=== PATIENT | female | born 1940 | race Caucasian/White ===

== ENCOUNTER → 2023-06-16 14:39 | Outpatient (REF) | payer MEDICARE, SELFPAY ==
[2023-06-16 16:19] LABS: % Basophils 0.7 % (0-2); % Immature Granulocytes 0.2 % (0-0.5); % Lymphocytes 41.2 % (20.5-51.1); % Monocytes 12.6 % (1.7-9.3); % Neutrophils 41.3 % (42.2-75.2); Absolute Basophils 0.1 10^3/uL (0-0.2); Absolute Eosinophils 0.3 10^3/uL (0-0.7); Absolute Lymphocytes 3.4 10^3/uL (1.2-3.4); Absolute Neutrophils 3.4 10^3/uL (1.4-6.5); Hematocrit 34.8 % (37.0-47.0); Mean Corp Hgb Conc. 34.5 g/dL (33.0-37.0); Mean Corpuscular Hgb 31.5 pg (27.0-31.0); Mean Corpuscular Volume 91.3 fL (81.0-99.0); Mean Platelet Volume 12.1 fL (7.4-10.4); Nucleated Red Blood Cells % 0 %; Platelet Count 229 10^3/uL (130-400); Red Blood Cell Count 3.81 10^6/uL (4.20-5.40); Red Cell Dist. Width 13.2 % (11.5-14.5); White Blood Cell Count 8.2 10^3/uL (4.8-10.8)
== END ==
LOC: REG 14:39
PROVIDERS: ATTENDING PHYSICIAN Internal Medicine Hematology & Oncology; FAMILY PHYSICIAN Family Medicine
DX: I26.99 Other pulmonary embolism without acute cor pulmonale (principal); I82.401 Acute embolism and thrombosis of unspecified deep veins of right lower extremity
CPT/HCPCS: 36415; 85025

== ENCOUNTER 2023-06-18 18:25 | Emergency (ER) | payer MEDICARE, SELFPAY ==
[2023-06-18] VITALS (8 sets, daily range): BP systolic 106–127; BP diastolic 62–85; PULSE 90–106; BMI 31.1
--- NOTE | 2023-06-18 19:14 | ED.GENMED ---
History of Present Illness
<TOBY Solorzano - Last Filed: 06/18/23 21:10>
General
Chief Complaint: Fainting/Passed Out
Source: patient
Exam Limitations: none
Time Seen by Provider: 06/18/23 19:02
Nursing documentation reviewed up to this point in time: agreed with
Travel History
Have you had any contact with someone who has COVID-19?: No
Do you have any symptoms of coronavirus? Fever > 100 degrees, chills, cough, shortness of breath, sore throat, loss of taste or smell, muscle aches, or headache?: No
History of Present Illness
History of Present Illness:
83 y/o F presents to ED after an episode of near syncope at 1700. Patient states she was in the kitchen when she suddenly felt hot and sweaty and fell to the floor. She states she did not lose consciousness. She also reports one episode of loose
bowels last night and chills last night. Patient reports she felt 'really cold' last night. She had associated generalized abdominal pain last night. She states the abdominal pain and diarrhea has since resolved. She also is not having chills.
Patient daughter reports patient does not drink adequate amount of fluids throughout the day. Patient agrees she only drinks little bit of water at night. She denies headache, numbness/tingling, weakness, fever, cough, congestion, sore throat,
nausea, vomiting or chest pain/palpitations.
If applicable-neuro sx onset
Onset of symptoms known: Yes
Date of onset of symptoms: 06/18/23
Time of onset of symptoms: 17:00
Past History
<TOBY Solorzano - Last Filed: 06/18/23 21:10>
Past History
ED Past Medical History: HTN and Other (Osteoporosis)
ED Past Surgical History: Cholecystectomy
Social History
Tobacco: Non-smoker
Alcohol: None
Drug: None
Personal:
Living: with family
Review of Systems
<Jessicamary Hidalgo WAYNE - Last Filed: 06/18/23 21:10>
Review of Systems
Allergies reviewed?: Yes
All Other Systems: ROS reviewed and negative except as documented in HPI and ROS
Constitutional: Reports chills
EENT: Reports no symptoms
Respiratory: Reports no symptoms
Cardiac: Reports diaphoresis
ABD/GI: Reports abdominal pain and diarrhea
: Reports no symptoms
Musculoskeletal: Reports no symptoms
Skin: Reports no symptoms
Neurological: Reports dizzy
Endocrine: Reports no symptoms
Hematologic/Lymphatic: Reports no symptoms
Psychiatric: Reports no symptoms
Phy Exam
<Jessicamary Hidalgo ME - Last Filed: 06/18/23 21:10>
General Physical Exam
General Presentation: well appearing and no apparent distress
General age: appears stated age
General Skin: warm and dry
General Habitus: normal
General Mental: alert
General Hydration: appears well hydrated
ENT Exam
ENT Exam: EOMI, TM's normal, pharynx normal and neck supple
Eye Exam
Eye Exam: PERRL, EOMI and conjunctiva normal
Cardiovascular Exam
Cardiovascular Exam: normal peripheral pulses
Pulmonary Exam
Pulmonary Exam: lungs clear, no respiratory distress, no rales, no crackles and no rhonchi
Gastrointestinal Exam
Gastrointestinal Exam: normal bowel sounds, non tender, soft and non distended
Neurological Exam
Neurological Exam: alert and oriented x3
Musculoskeletal Exam
Musculoskeletal Exam: full ROM
Skin Exam
Skin Exam: normal color, warm/dry and no rash
Psychiatric Exam
Psychiatric Exam: normal mood/affect
Course
<Jessicamary Hidalgo ME - Last Filed: 06/18/23 21:10>
Orders/Labs/Results
Orders:
Orders
06/18/23 18:37
EKG [Electrocardiogram (*1)] Urgent
Reason for Study: Syncope
EKG- Treatment ONCE
06/18/23 19:20
CBC/With Diff [Complete Blood Count/With Diff] Urgent
CMP [Comprehensive Metabolic Panel] Urgent
06/18/23 19:22
Orthostatic VS- Treatment ONCE
06/18/23 19:47
COVID-19 Antigen Urgent
Source: Nasal Swab
Influenza A+B Rapid Molecular Urgent
KATIE Source: Nasal Swab
Specimen Description:
06/18/23 20:15
0.9% Sodium Chloride 1000 ml [Nss] 1,000 ml IV BOLUS
Potassium Chloride 10% Elixir [KCl Elixir] 40 meq PO NOW STA
06/18/23 20:24
0.9% Sodium Chloride 500 ml [Nss] 500 ml IV BOLUS
Abnormal Lab Results
06/18/23
19:20
WBC 11.4 H 10^3/uL
(4.8-10.8)
RBC 3.82 L 10^6/uL
(4.20-5.40)
Hgb 11.9 L g/dL
(12.0-16.0)
Hct 33.2 L %
(37.0-47.0)
MCH 31.2 H pg
(27.0-31.0)
MPV 11.0 H fL
(7.4-10.4)
Absolute Neuts (auto) 7.8 H 10^3/uL
(1.4-6.5)
Absolute Monos (auto) 1.4 H 10^3/uL
(0.1-0.6)
Lymphocytes % 18.9 L %
(20.5-51.1)
Monocytes % 11.9 H %
(1.7-9.3)
Sodium 130 L mmol/L
(135-145)
Potassium 3.0 L mmol/L
(3.5-5.1)
Chloride 93 L mmol/L
(98-107)
BUN 30 H mg/dl
(7-17)
Creatinine 1.1 H mg/dL
(0.6-1.0)
Glucose 153 H mg/dl
(70-99)
06/18/23 19:20
06/18/23 19:20
Vital Signs
Initial and Last Documented VS:
Initial Vital Signs
Temp Pulse Resp BP Pulse Ox
98.4 F 92 18 127/65 97
06/18/23 18:33 06/18/23 18:33 06/18/23 18:33 06/18/23 18:33 06/18/23 18:33
Last Documented Vital Signs
Temp Pulse Resp BP Pulse Ox
98.4 F 102 18 109/69 97
06/18/23 18:33 06/18/23 20:00 06/18/23 20:00 06/18/23 20:00 06/18/23 18:33
Lionlt;Salomon Clayton, DO - Last Filed: 06/18/23 21:13>
Orders/Labs/Results
Orders:
Orders
06/18/23 18:37
EKG [Electrocardiogram (*1)] Urgent
Reason for Study: Syncope
EKG- Treatment ONCE
06/18/23 19:20
CBC/With Diff [Complete Blood Count/With Diff] Urgent
CMP [Comprehensive Metabolic Panel] Urgent
06/18/23 19:22
Orthostatic VS- Treatment ONCE
06/18/23 19:47
COVID-19 Antigen Urgent
Source: Nasal Swab
Influenza A+B Rapid Molecular Urgent
KATIE Source: Nasal Swab
Specimen Description:
06/18/23 20:15
0.9% Sodium Chloride 1000 ml [Nss] 1,000 ml IV BOLUS
Potassium Chloride 10% Elixir [KCl Elixir] 40 meq PO NOW STA
06/18/23 20:24
0.9% Sodium Chloride 500 ml [Nss] 500 ml IV BOLUS
Abnormal Lab Results
06/18/23
19:20
WBC 11.4 H 10^3/uL
(4.8-10.8)
RBC 3.82 L 10^6/uL
(4.20-5.40)
Hgb 11.9 L g/dL
(12.0-16.0)
Hct 33.2 L %
(37.0-47.0)
MCH 31.2 H pg
(27.0-31.0)
MPV 11.0 H fL
(7.4-10.4)
Absolute Neuts (auto) 7.8 H 10^3/uL
(1.4-6.5)
Absolute Monos (auto) 1.4 H 10^3/uL
(0.1-0.6)
Lymphocytes % 18.9 L %
(20.5-51.1)
Monocytes % 11.9 H %
(1.7-9.3)
Sodium 130 L mmol/L
(135-145)
Potassium 3.0 L mmol/L
(3.5-5.1)
Chloride 93 L mmol/L
(98-107)
BUN 30 H mg/dl
(7-17)
Creatinine 1.1 H mg/dL
(0.6-1.0)
Glucose 153 H mg/dl
(70-99)
06/18/23 19:20
06/18/23 19:20
Vital Signs
Initial and Last Documented VS:
Initial Vital Signs
Temp Pulse Resp BP Pulse Ox
98.4 F 92 18 127/65 97
06/18/23 18:33 06/18/23 18:33 06/18/23 18:33 06/18/23 18:33 06/18/23 18:33
Last Documented Vital Signs
Temp Pulse Resp BP Pulse Ox
98.4 F 102 18 109/69 97
06/18/23 18:33 06/18/23 20:00 06/18/23 20:00 06/18/23 20:00 06/18/23 18:33
<TOBY Solorzano - Last Filed: 06/18/23 21:10>
MDM/Problems Addressed
Differential Diagnosis Includes:
Arrhythmia
Dehydration
Anemia
Flu/COVID
Viral gastro
<TOBY Solorzano - Last Filed: 06/18/23 21:10>
*Critical Care Note
Total Time (30-74mins, 75-104mins- exclusive of procedures): Not Applicable
<TOBY Solorzano - Last Filed: 06/18/23 21:10>
Update Note
Update Note:
2109: Patient is comfortable in bed. She reports feeling well and 'ready to go home'. Vitals stable.
<Salomon Clayton DO - Last Filed: 06/18/23 21:13>
Update Note
Update Note:
06/18/20232108 PM: Patient feels well enough to go home. She will remain hydrated
ED Attending Note
<TOBY Solorzano - Last Filed: 06/18/23 21:10>
-
Portions of this chart may have been created with voice recognition software.� Occasional wrong word or��sound alike� substitutions may have occurred due to the inherent limitations of voice recognition software.
<Salomon Clayton DO - Last Filed: 06/18/23 21:13>
ED Attending Note
Patient seen and examined by attending physician: Yes
I performed the substantive portion of visit, reviewed & personally made and approve the management plan that is documented in note by myself or SAVANNAH.: Yes
ED Attending Note:
Pleasant 83-year-old female that presents with a near syncopal event that occurred around 5 PM tonight. Patient was in the kitchen and felt flushed and had a near syncopal event. She fell to the floor. She did not lose consciousness. She states
that she did not hit her head. She states that yesterday she had generalized abdominal pain and diarrhea. Patient and family report that she is not drinking enough fluids. She is on Lasix for the bilateral leg edema as followed by her primary
care physician. Patient has no complaints at this time and wishes to be discharged home. Patient was seen in conjunction with the PA student. I have reviewed and agree with the history and treatment plan presented. On my independent physical
exam, patient is awake, alert, and oriented x3, no acute distress. Heart is regular rhythm rate of 72. Lungs are clear to auscultation bilaterally. Moves all 4 extremities.
EKG shows sinus rhythm rate of 81 with PACs present. No evidence of acute ischemia. When compared with previous EKG dated August 11, 2022, similar morphology noted. Rate has improved
Plan is judicious fluid repletion with potassium supplementation. Patient wishes to be discharged. Once she can ambulate she will be discharged.
Discharge Plan
Departure
Patient Disposition: Home (Routine Discharge)
Date of Disposition: 06/18/23
Time of Disposition: 21:10
Patient with high blood pressure during this ER visit?: No
Condition: Good
Discharge Problem:
Near syncope, Acute hypokalemia, Dehydration
Instructions: Hypokalemia (DC), Syncope (Fainting) (DC), Dehydration, Adult ED
Prescriptions:
No Action
hydrochlorothiazide 25 MG tablet
25 mg PO DAILY
Centrum Women 18-400 mg-mcg Tablet
1 tab PO DAILY
losartan 50 mg tablet
50 mg PO DAILY
famotidine 20 mg Tablet
20 mg PO DAILY
diltiazem HCl 180 mg Capsule,Extended Release 24hr
180 mg PO DAILY Qty: 30 0RF
Eliquis 5 mg tablet
5 mg PO BID Qty: 90 0RF
Rx Instructions:
take 10 mg BID for 5 days, than 5 mg BID
Referrals:
Aftab Hawk MD [Family Provider] -
Activity Restrictions/Additional Instructions:
It was a pleasure meeting you and taking part in your care. We hope for your continued healing and wellness.
Please read discharge instructions in their entirety. However, they are for general education and may not describe your exact diagnosis at discharge. Information on your ER visit and medical conditions were discussed with you along with appropriate
follow up information...
If indicated, please take your medications as instructed and indicated on discharge paperwork.
Please schedule a follow up appointment as directed. Call to schedule an appointment
Please return to the emergency department with ANY change in, persisting, or worsening of symptoms. If any of your symptoms do not improve, or persist, or become more severe within 6-12 hours, please return to the emergency department for further
care.
Please return to the emergency department if you develop a headache, neck pain/stiffness, fever greater than 100.4F, chest pain, shortness of breath, persistent nausea, vomiting, slurred speech, difficulty walking, numbness/tingling, weakness, signs
of infection or any other symptoms that are worrisome to you.
If you have any questions or concerns please do not hesitate to call the Hospital at or E-mail me directly at [email or web address]
Interventions
Interventions:
*General Assessment Last Done: 06/18/23 18:33
*ED COVID-19 Vaccine History Last Done: 06/18/23 18:33
ED- Cardiac Assessment Last Done: 06/18/23 19:20
ED- Neurological Assessment Last Done: 06/18/23 19:20
[2023-06-18 19:27] LABS: % Basophils 0.4 % (0-2); % Eosinophils 0.4 % (0-6); % Immature Granulocytes 0.4 % (0-0.5); % Lymphocytes 18.9 % (20.5-51.1); % Monocytes 11.9 % (1.7-9.3); Absolute Basophils 0.1 10^3/uL (0-0.2); Absolute Lymphocytes 2.2 10^3/uL (1.2-3.4); Absolute Monocytes 1.4 10^3/uL (0.1-0.6); Absolute Neutrophils 7.8 10^3/uL (1.4-6.5); Hematocrit 33.2 % (37.0-47.0); Hemoglobin 11.9 g/dL (12.0-16.0); Mean Corp Hgb Conc. 35.8 g/dL (33.0-37.0); Mean Corpuscular Hgb 31.2 pg (27.0-31.0); Mean Corpuscular Volume 86.9 fL (81.0-99.0); Nucleated Red Blood Cells % 0 %; Platelet Count 220 10^3/uL (130-400); Red Blood Cell Count 3.82 10^6/uL (4.20-5.40); White Blood Cell Count 11.4 10^3/uL (4.8-10.8)
[2023-06-18 20:03] LABS: ALT (SGPT) 17 U/L (0-35); AST (SGOT) 26 U/L (14-36); Albumin 3.8 g/dl (3.5-5.0); Alkaline Phosphatase 72 U/L (38-126); Blood Urea Nitrogen 30 mg/dl (7-17); Calcium 9.7 mg/dl (8.4-10.2); Carbon Dioxide 29 mmol/L (22-30); Chloride 93 mmol/L (98-107); Estimated Creatinine Clearance 37 ml/min; Glucose 153 mg/dl (70-99); Sodium 130 mmol/L (135-145); Total Bilirubin 1.3 mg/dl (0.2-1.3); Total Protein 7.6 g/dl (6.3-8.2); eGFR 49.55
[2023-06-18 20:19] LABS: COVID-19 Antigen Negative (Negative)
[2023-06-18] MEDS: KCL ELIXIR 40 MEQ PO (20:22)
[2023-06-18] MEDS: NSS 500 IV (20:24)
== END 2023-06-18 21:38 | disposition home or self-care (01) ==
LOC: EMR 18:25
PROVIDERS: EMERGENCY PHYSICIAN Student in an Organized Health Care Education/Training Program; FAMILY PHYSICIAN Family Medicine
DX: R55 Syncope and collapse (principal); E87.6 Hypokalemia; E86.0 Dehydration; R10.84 Generalized abdominal pain; R19.7 Diarrhea, unspecified; W18.30XA Fall on same level, unspecified, initial encounter; Z11.52 Encounter for screening for COVID-19; R60.0 Localized edema; I10 Essential (primary) hypertension; M81.0 Age-related osteoporosis without current pathological fracture; E78.5 Hyperlipidemia, unspecified; M19.90 Unspecified osteoarthritis, unspecified site; Z85.820 Personal history of malignant melanoma of skin; Z87.891 Personal history of nicotine dependence; Z90.49 Acquired absence of other specified parts of digestive tract; Z91.040 Latex allergy status
CPT/HCPCS: 99284; 80053; 85025; 87502; 87811; 93005

== ENCOUNTER → 2023-06-30 15:04 | Outpatient (REF) | payer MEDICARE, SELFPAY ==
[2023-06-30 16:07] LABS: Blood Urea Nitrogen 23 mg/dl (7-17); Calcium 9.8 mg/dl (8.4-10.2); Carbon Dioxide 26 mmol/L (22-30); Chloride 102 mmol/L (98-107); Glucose 110 mg/dl (70-99); Potassium 3.4 mmol/L (3.5-5.1); Sodium 135 mmol/L (135-145); eGFR 55.55
== END ==
LOC: REG 15:04
PROVIDERS: ATTENDING PHYSICIAN Internal Medicine Cardiovascular Disease; FAMILY PHYSICIAN Family Medicine
DX: I26.94 Multiple subsegmental thrombotic pulmonary emboli without acute cor pulmonale (principal); I07.1 Rheumatic tricuspid insufficiency; R53.83 Other fatigue; I10 Essential (primary) hypertension; G47.33 Obstructive sleep apnea (adult) (pediatric); E78.2 Mixed hyperlipidemia; R55 Syncope and collapse
CPT/HCPCS: 36415; 80048

== ENCOUNTER → 2023-07-11 13:28 | Outpatient (REF) | payer MEDICARE, SELFPAY ==
[2023-07-11 14:43] LABS: Blood Urea Nitrogen 27 mg/dl (7-17); Calcium 9.9 mg/dl (8.4-10.2); Carbon Dioxide 30 mmol/L (22-30); Chloride 98 mmol/L (98-107); Glucose 127 mg/dl (70-99); Sodium 138 mmol/L (135-145); eGFR > 60.00
[2023-07-11 15:01] LABS: Potassium 3.6 mmol/L (3.5-5.1)
== END ==
LOC: REG 13:28
PROVIDERS: ATTENDING PHYSICIAN Internal Medicine Cardiovascular Disease; FAMILY PHYSICIAN Family Medicine
DX: E87.6 Hypokalemia (principal)
CPT/HCPCS: 36415; 80048

== ENCOUNTER → 2023-08-01 14:32 | Outpatient (REF) | payer MEDICARE, SELFPAY | LOC: DHCBC MAIN 14:32 | PROVIDERS: ATTENDING PHYSICIAN Internal Medicine Cardiovascular Disease; FAMILY PHYSICIAN Family Medicine | DX: I07.1 Rheumatic tricuspid insufficiency (principal); R55 Syncope and collapse | CPT/HCPCS: 93306 ==

== ENCOUNTER → 2023-08-10 14:54 | Outpatient (REF) | payer MEDICARE, SELFPAY ==
[2023-08-10 16:43] LABS: Blood Urea Nitrogen 29 mg/dl (7-17); Calcium 9.9 mg/dl (8.4-10.2); Carbon Dioxide 27 mmol/L (22-30); Chloride 98 mmol/L (98-107); Glucose 122 mg/dl (70-99); Potassium 3.7 mmol/L (3.5-5.1); Sodium 137 mmol/L (135-145); eGFR > 60.00
== END ==
LOC: REG 14:54
PROVIDERS: ATTENDING PHYSICIAN Internal Medicine Cardiovascular Disease; FAMILY PHYSICIAN Family Medicine
DX: I34.0 Nonrheumatic mitral (valve) insufficiency (principal)
CPT/HCPCS: 36415; 80048

== ENCOUNTER → 2024-03-18 13:25 | Outpatient (REF) | payer MEDICARE, SELFPAY | LOC: RAD 13:25 | PROVIDERS: ATTENDING PHYSICIAN Family Medicine | DX: G89.29 Other chronic pain (principal); M25.562 Pain in left knee; M25.561 Pain in right knee | CPT/HCPCS: 73564 ==

== ENCOUNTER → 2024-04-27 11:16 | Outpatient (REF) | payer MEDICARE, SELFPAY | LOC: WDC 11:16 | PROVIDERS: ATTENDING PHYSICIAN Family Medicine | DX: Z12.31 Encounter for screening mammogram for malignant neoplasm of breast (principal) | CPT/HCPCS: 77063; 77067 ==

== ENCOUNTER → 2024-05-01 08:53 | Outpatient (REF) | payer MEDICARE, SELFPAY ==
[2024-05-01 09:41] LABS: % Basophils 1.1 % (0-2); % Eosinophils 2.9 % (0-6); % Immature Granulocytes 0.3 % (0-0.5); % Lymphocytes 39.2 % (20.5-51.1); % Monocytes 11.1 % (1.7-9.3); % Neutrophils 45.4 % (42.2-75.2); Absolute Basophils 0.1 10^3/uL (0-0.2); Absolute Eosinophils 0.2 10^3/uL (0-0.7); Absolute Lymphocytes 2.8 10^3/uL (1.2-3.4); Absolute Monocytes 0.8 10^3/uL (0.1-0.6); Absolute Neutrophils 3.3 10^3/uL (1.4-6.5); Hematocrit 37.9 % (37.0-47.0); Hemoglobin 12.6 g/dL (12.0-16.0); Mean Corp Hgb Conc. 33.2 g/dL (33.0-37.0); Mean Corpuscular Volume 93.3 fL (81.0-99.0); Mean Platelet Volume 10.4 fL (7.4-10.4); Nucleated Red Blood Cells % 0 %; Platelet Count 265 10^3/uL (130-400); Red Blood Cell Count 4.06 10^6/uL (4.20-5.40); Red Cell Dist. Width 14.3 % (11.5-14.5); White Blood Cell Count 7.2 10^3/uL (4.8-10.8)
[2024-05-01 10:01] LABS: Glycohemoglobin (HgbA1c) 5.8 % (4.0-5.6)
[2024-05-01 10:09] LABS: Urine Albumin Trace (Neg - Trace); Urine Bilirubin Negative (Negative); Urine Character Clear (Clear); Urine Color Yellow; Urine Glucose Negative (Negative); Urine Ketone Negative (Negative); Urine Leukocyte 1+ (Negative); Urine Nitrite Negative (Negative); Urine Occult Blood Negative (Negative); Urine Urobilinogen Negative (Neg - 1+)
[2024-05-01 10:16] LABS: Microalbumin, Random Urine 0.8 mg/dl (0.6-1.7); Microalbumin/creatinine Ratio 5.9 mg/g
[2024-05-01 10:20] LABS: ALT (SGPT) 18 U/L (0-35); AST (SGOT) 22 U/L (14-36); Albumin 4.1 g/dl (3.5-5.0); Alkaline Phosphatase 69 U/L (38-126); Blood Urea Nitrogen 30 mg/dl (7-17); Calcium 9.7 mg/dl (8.4-10.2); Carbon Dioxide 29 mmol/L (22-30); Chloride 100 mmol/L (98-107); Glucose 96 mg/dl (70-99); HDL Cholesterol 75 mg/dl; LDL Cholesterol, Calculated 140 mg/dl; Potassium 3.9 mmol/L (3.5-5.1); Sodium 138 mmol/L (135-145); Total Bilirubin 0.6 mg/dl (0.2-1.3); Total Cholesterol 236 mg/dl (50-199); Total Protein 7.4 g/dl (6.3-8.2); Triglyceride 107 mg/dl (10-149); Very Low Density Lipoprotein 21 mg/dl (0-30); eGFR 49.24
[2024-05-01 10:33] LABS: Urine Squamous Cell >30 /LPF (Few)
[2024-05-01 10:38] LABS: Urine Calcium Oxalate Crystals Seen
[2024-05-01 10:39] LABS: Urine Bacteria Moderate (Negative); Urine Red Blood Cell 0-2 /HPF (0-2)
[2024-05-01 11:01] LABS: Free T4 1.81 ng/dl (0.78-2.19); TSH 6.11 uIU/ml (0.47-4.68)
== END ==
LOC: REG 08:53
PROVIDERS: ATTENDING PHYSICIAN Family Medicine
DX: Z76.89 Persons encountering health services in other specified circumstances (principal); I48.91 Unspecified atrial fibrillation; I26.94 Multiple subsegmental thrombotic pulmonary emboli without acute cor pulmonale; Z79.01 Long term (current) use of anticoagulants; E66.811 Obesity, class 1; Z83.3 Family history of diabetes mellitus; E78.2 Mixed hyperlipidemia; I10 Essential (primary) hypertension
CPT/HCPCS: 36415; 80053; 80061; 81003; 81015; 82043; 82570; 83036; 84439; 84443; 85025

== ENCOUNTER → 2024-06-24 15:15 | Outpatient (REF) | payer MEDICARE, SELFPAY | LOC: RCS 15:15 | PROVIDERS: ATTENDING PHYSICIAN Internal Medicine Cardiovascular Disease; FAMILY PHYSICIAN Family Medicine | DX: I07.1 Rheumatic tricuspid insufficiency (principal); R53.83 Other fatigue; I47.10 Supraventricular tachycardia, unspecified; I47.19 Other supraventricular tachycardia; Z86.711 Personal history of pulmonary embolism; I45.10 Unspecified right bundle-branch block; R55 Syncope and collapse | CPT/HCPCS: 93306 ==

== ENCOUNTER → 2024-06-26 11:03 | Outpatient (REF) | payer MEDICARE, SELFPAY | LOC: HWRCS 11:03 | PROVIDERS: ATTENDING PHYSICIAN Internal Medicine Cardiovascular Disease; FAMILY PHYSICIAN Family Medicine | DX: R06.09 Other forms of dyspnea (principal) | CPT/HCPCS: 78452; 93017; A9500; J2785 ==

== ENCOUNTER 2024-07-01 06:42 | Day surgery (SDC) | payer MEDICARE, SELFPAY ==
--- NOTE | 2024-07-01 08:15 | ITS.CL.IMPLP ---
[employer] - Implant Loop
Implant Loop
Procedure Report:
Procedure: Insertion of Loop Recorder.�
84 years old woman with syncope and negative exhaustive work up is recommended an ILR placement.
Date of the procedure: 07/01/24
Procedure Physician: Amina Batista MD [facility]
Indication: Syncope.
Description of the procedure:
Patient was brought to the holding area after informed consent was obtained from the patient. The time out was performed immediately before the procedure.
The left parasternal chest area was prepped and draped in sterile fashion with chlorhexidine prep x 3 times. Lidocaine 1% was injected subcutaneously for local anesthesia. The loop recorder was tunneled and then injected into the subcutaneous
tissue. The tunneling tool was removed leaving the loop recorder in place. The dermis was closed with steristrips and a pressure Tegaderm dressing was placed. There were no immediate complications.
Post procedure, the device was interrogated and showed good detectable P and R waves.
There were no immediate complications.
Device:
LINQII; Model: [id number]; Serial #:[id number]
R wave amplitude: 0.6 mV
Final Programming:
��������������� Tachycardia Detection: >182 bpm for 16 beats
��������������� Bradycardia Detection: 30 bpm for 12 beats, Asystole for 5 seconds.
��������������� Atrial fibrillation detection: On with > 10 min duration
Conclusion:
Successful insertion of loop recorder.
Recommendation:
Routine post-insert loop care.
== END 2024-07-01 08:43 | disposition home or self-care (01) ==
LOC: CATH 06:42
PROVIDERS: ATTENDING PHYSICIAN Internal Medicine Cardiovascular Disease; FAMILY PHYSICIAN Family Medicine; OTHER PHYSICIAN Internal Medicine Cardiovascular Disease
DX: Z09 Encounter for follow-up examination after completed treatment for conditions other than malignant neoplasm (principal); R55 Syncope and collapse; R06.09 Other forms of dyspnea; I47.10 Supraventricular tachycardia, unspecified; I45.10 Unspecified right bundle-branch block; I07.1 Rheumatic tricuspid insufficiency; I10 Essential (primary) hypertension; E78.2 Mixed hyperlipidemia; G47.33 Obstructive sleep apnea (adult) (pediatric); K21.9 Gastro-esophageal reflux disease without esophagitis; Z87.891 Personal history of nicotine dependence; Z79.01 Long term (current) use of anticoagulants
CPT/HCPCS: 33285; C1764

== ENCOUNTER → 2024-11-08 07:27 | Outpatient (REF) | payer MEDICARE, SELFPAY ==
[2024-11-08 08:49] LABS: Microalb - Urine Creatinine 169.000 mg/dl
[2024-11-08 08:52] LABS: Microalbumin, Random Urine 1.6 mg/dl (0.6-1.7)
[2024-11-08 08:54] LABS: ALT (SGPT) 15 U/L (0-35); AST (SGOT) 20 U/L (14-36); Albumin 3.9 g/dl (3.5-5.0); Alkaline Phosphatase 55 U/L (38-126); Blood Urea Nitrogen 26 mg/dl (7-17); Calcium 9.7 mg/dl (8.4-10.2); Carbon Dioxide 29 mmol/L (22-30); Chloride 105 mmol/L (98-107); Glucose 98 mg/dl (70-99); Potassium 4.1 mmol/L (3.5-5.1); Sodium 139 mmol/L (135-145); Total Protein 7.0 g/dl (6.3-8.2); eGFR 55.21
[2024-11-08 14:04] LABS: TSH 4.85 uIU/ml (0.47-4.68)
[2024-11-11 07:59] LABS: Thyroglobulin Antibodies <1.5 IU/mL (0.0-4.0)
== END ==
LOC: REG 07:27
PROVIDERS: ATTENDING PHYSICIAN Hospitalist; FAMILY PHYSICIAN Family Medicine
DX: M81.0 Age-related osteoporosis without current pathological fracture (principal); R79.89 Other specified abnormal findings of blood chemistry; N18.31 Chronic kidney disease, stage 3a; I48.91 Unspecified atrial fibrillation
CPT/HCPCS: 80053; 82043; 82570; 83520; 84100; 84439; 84443; 86376; 86800